=== PATIENT | female | born 1970 | race Caucasian/White ===

== ENCOUNTER 2017-02-09 13:11 | Outpatient (CLI) | payer BC ==
--- NOTE | 2017-02-09 15:48 | ULT ---
THYROID ULTRASOUND 02/09/17 HISTORY: Multiple thyroid nodules followup. Multiple longitudinal and transverse images of the thyroid gland is obtained using a multihertz linea r array transducer. Real time and color flow images are used to evaluate the thyroid. The right thyroid lobe measures 4.5 x 1.4 x 1.9 cm while the left measures 4.0 x 1.4 x 1.9 cm. Both thyroid lobes are extensively heterogeneous. No definite dominant nodule seen. The overall appea dee is stable. No significant interval growth of any individual lesion seen; however, the thyroid lobes are heterogeneous and individual focal areas are difficult to assess. IMPRESSION: Continued heterogeneous thyroid lobes. Findings compatible with multinodular goiter. No significant i nterval changes seen. No obvious dominant nodule seen. POS: [facility]
== END 2017-02-09 13:12 | disposition home or self-care (01) ==
LOC: SCSULT 13:11
PROVIDERS: ATTEND Family Medicine
DX: E04.1 Nontoxic single thyroid nodule (principal)
CPT/HCPCS: 76536

== ENCOUNTER 2017-03-02 10:39 | Outpatient (CLI) | payer BC ==
--- NOTE | 2017-03-09 14:27 | MMO ---
BILATERAL SCREENING MAMMOGRAM: Date: 03/02/17 HISTORY: 46-year-old female. Routine screening mammography. COMPARISON: 12/23/15. TECHNIQUE: CC and MLO views of both breasts are submitted for interpretation. This patient's mammogram was reviewed with the assistance of computer-aided detection. FINDINGS: The breasts are composed of heterogeneously dense fibroglandular tissue, which limits the sensitivity of mammography in the detection of underlying malignancy. Bilaterally, no suspicious dominant mass, architectural distortion, or suspicious calcifications. IMPRESSION: BIRADS 1: Negative RECOMMENDATION: Annual mammogram. POS: [facility]
== END 2017-03-02 10:40 | disposition home or self-care (01) ==
LOC: SCSMAMMO 10:39
PROVIDERS: ATTEND Family Medicine
DX: Z12.31 Encounter for screening mammogram for malignant neoplasm of breast (principal)
CPT/HCPCS: 77067; G0202

== ENCOUNTER 2017-03-08 13:09 | Emergency (ER) | payer BC ==
--- NOTE | 2017-03-08 14:06 | RAD ---
TWO VIEWS OF THE CHEST: 03/08/2017 COMPARISON: 02/22/2017 HISTORY: Chest pain. FINDINGS: There is no pneumothorax or pleural fluid and no focal consolidation or alveolar edema. Heart and me diastinal contours are stable. There is mild mid-thoracic spine dextroscoliosis. No acute findings are seen. IMPRESSION: No acute findings. POS: [facility]
[2017-03-08 14:56] LABS: #Basophils 0.1 thou/uL (0.0-0.2); #Eosinphils 0.3 thou/uL (0.0-0.7); #Lymphocytes 2.8 thou/uL (1.20-3.40); #Monocytes 0.5 thou/uL (0.11-0.59); #Neutrophils 3.6 thou/uL (1.40-6.50); %Basophils 0.7 % (0.0-1.0); %Eosinophils 3.5 % (0.0-10.0); %Lymphocytes 38.1 % (21.0-51.0); %Monocytes 7.3 % (0.0-10.0); Hematocrit 41.2 % (36.0-47.0); Mean Platelet Volume 7.2 fL (7.4-10.4); Red Blood Cell (RBC) Count 4.39 mill/uL (4.20-5.40); White Blood Cell (WBC) Count 7.2 thou/uL (4.8-10.8)
[2017-03-08 15:03] LABS: PTT 28.8 SEC (22.9-36.1)
[2017-03-08 15:19] LABS: ALT (SGPT) 21 U/L (8-55); AST (SGOT) 18 U/L (5-34); Alkaline Phosphatase 70 U/L (40-150); Anion Gap 11 mmol/L (10-20); BUN (Urea Nitrogen) 12 mg/dL (7.0-18.7); Bilirubin, Total 0.5 mg/dL (0.2-1.2); CK (CPK) 63 U/L (29-168); Calc. Creatinine Clearance 0 mL/min (70-130); Carbon Dioxide 29 mmol/L (22-29); Chloride 104 mmol/L (98-107); Estimated GFR-MDRD 74; Globulin 2.9 g/dL (2.4-3.5); Lipase 18 U/L (8-78); Protein, Total 7.1 g/dL (6.0-8.3)
[2017-03-08 15:23] LABS: Troponin I Less than 0.010 ng/mL (< 0.028)
[2017-03-08 15:24] LABS: Digoxin Less than 0.15 ng/mL (0.8-2.0)
--- NOTE | 2017-04-07 14:38 | EKG ---
Test Reason : Blood Pressure : / mmHG Vent. Rate : 087 BPM Atrial Rate : 087 BPM P-R Int : 176 ms QRS Dur : 076 ms QT Int : 364 ms P-R-T Axes : 076 -09 076 degrees QTc Int : 438 ms Normal sinus rhythm Possible Left atrial enlargement Nonspecific ST and T wave abnormality Abnormal ECG Confirmed by GARLAND BLEVINS, LINDA ([id number]), material expeditor FATOUMATA BABCOCK ([id number] on 04/07/2017 2:38:12 PM Referred By: Confirmed By:LINDA HAQUE MD
== END 2017-03-08 16:45 | disposition home or self-care (01) ==
LOC: ERS 13:09
DX: R07.89 Other chest pain (principal); J45.909 Unspecified asthma, uncomplicated; E03.9 Hypothyroidism, unspecified; F41.9 Anxiety disorder, unspecified; Z79.899 Other long term (current) drug therapy
CPT/HCPCS: 36415; 71020; 80053; 80162; 82550; 82553; 83690; 84484; 85025; 85610; 85730; 93005; 94760

== ENCOUNTER 2017-03-10 01:45 | Emergency (ER) | payer BC ==
[2017-03-10 02:15] LABS: #Basophils 0.1 thou/uL (0.0-0.2); #Eosinphils 0.3 thou/uL (0.0-0.7); #Lymphocytes 3.1 thou/uL (1.20-3.40); #Monocytes 0.6 thou/uL (0.11-0.59); #Neutrophils 3.5 thou/uL (1.40-6.50); %Basophils 1.4 % (0.0-1.0); %Eosinophils 4.2 % (0.0-10.0); %Lymphocytes 41.1 % (21.0-51.0); %Monocytes 8.3 % (0.0-10.0); Hematocrit 46.4 % (36.0-47.0); Mean Platelet Volume 6.4 fL (7.4-10.4); White Blood Cell (WBC) Count 7.7 thou/uL (4.8-10.8)
[2017-03-10] MEDS ORDERED: Nitroglycerin 2% Ointment 1 INCH/1 GM Packet ONE (02:23)
[2017-03-10] MEDS ORDERED: Clopidogrel Bisulfate 75 MG TAB ONE (02:26)
[2017-03-10 02:30] LABS: ALT (SGPT) 24 U/L (8-55); AST (SGOT) 19 U/L (5-34); Alkaline Phosphatase 73 U/L (40-150); Anion Gap 13 mmol/L (10-20); BUN (Urea Nitrogen) 13 mg/dL (7.0-18.7); Bilirubin, Total 0.4 mg/dL (0.2-1.2); Calc. Creatinine Clearance 0 mL/min (70-130); Calcium 9.3 mg/dL (7.8-10.44); Carbon Dioxide 28 mmol/L (22-29); Chloride 103 mmol/L (98-107); Estimated GFR-MDRD 65; Globulin 2.9 g/dL (2.4-3.5); Lipase 20 U/L (8-78); Protein, Total 7.3 g/dL (6.0-8.3)
[2017-03-10 02:32] LABS: Troponin I Less than 0.010 ng/mL (< 0.028)
[2017-03-10 05:22] LABS: Troponin I 0.015 ng/mL (< 0.028)
--- NOTE | 2017-03-10 08:01 | RAD ---
CHEST 2 VIEWS: HISTORY: Chest pain. COMPARISON: Chest radiograph 12/31/16. FINDINGS: Lungs are slightly hyperinflated. Mild reversed S-shaped scoliosis. No focal airspace infiltrate. Cardiac silhouette and mediastinal contours within normal limits. IMPRESSION: No significant change to radiographic comparison chest. Mild obstructive pulmonary disease. POS: [facility]
== END 2017-03-10 05:38 | disposition home or self-care (01) ==
LOC: SCSER 01:45
DX: R07.9 Chest pain, unspecified (principal); J45.909 Unspecified asthma, uncomplicated; E03.9 Hypothyroidism, unspecified; F41.9 Anxiety disorder, unspecified; Z79.899 Other long term (current) drug therapy
CPT/HCPCS: 71020; 80053; 82553; 83690; 84484; 85025; 93005

== ENCOUNTER 2018-02-18 10:59 | Outpatient (CLI) | payer BC ==
--- NOTE | 2018-02-18 13:42 | ULT ---
THYROID ULTRASOUND: HISTORY: Followup of thyroid nodules. COMPARISON: 02/09/2017 exam. FINDINGS: Real-time imaging of the right and left lobes of the gland were performed. The right lobe measures 1 .5 x 1.9 x 4.2 cm and the left lobe 1.5 x 2 x 4.1 cm. Once again, the gland is diffusely heterogeneo us. It is difficult to define discrete nodules. Probably the best visualized area of a solitary nod ule is in the left lobe where there is a 7 x 11 mm nodular density which is felt to be fairly similar in appearance to what was seen on the prior examination. IMPRESSION: Diffusely heterogeneous gland, stable. POS: [facility]
== END 2018-02-18 11:00 | disposition home or self-care (01) ==
LOC: SCSULT 10:59
PROVIDERS: ATTEND Otolaryngology Plastic Surgery within the Head & Neck
DX: E04.1 Nontoxic single thyroid nodule (principal)
CPT/HCPCS: 76536

== ENCOUNTER 2018-05-02 08:55 | Outpatient (CLI) | payer BC ==
--- NOTE | 2018-05-02 12:19 | MMO ---
BILATERAL SCREENING MAMMOGRAM: Date: 05/02/18 HISTORY: 47-year-old female. Routine screening mammography. COMPARISON: 03/02/17, 12/23/15. TECHNIQUE: CC and MLO views of both breasts are submitted for interpretation. This patient's mammogram was reviewed with the assistance of computer-aided detection. FINDINGS: The breasts are composed of heterogeneously dense fibroglandular tissue, which limits the sensitivity of mammography in the detection of underlying malignancy. Bilaterally, no suspicious dominant mass, architectural distortion, or suspicious calcifications. IMPRESSION: BIRADS 1: Negative RECOMMENDATION: Annual mammogram. POS: [facility]
== END 2018-05-02 08:56 | disposition home or self-care (01) ==
LOC: SCSMAMMO 08:55
PROVIDERS: ATTEND Obstetrics & Gynecology
DX: Z12.31 Encounter for screening mammogram for malignant neoplasm of breast (principal)
CPT/HCPCS: 77067

== ENCOUNTER 2018-12-08 13:04 | Outpatient (CLI) | payer BC ==
--- NOTE | 2018-12-08 13:37 | RAD ---
EXAM: Two views chest PROVIDED CLINICAL HISTORY: Dyspnea COMPARISON: 03/10/2017 FINDINGS: Cardiac silhouette and pulmonary vasculature are within normal limits. The lungs remain mildly hyper inflated. Linear densities are seen at the left lung base probably due to mild atelectasis. Lungs otherwise appear clear. Right convex scoliosis thoracic spine is again seen. Chest is stable compared to prior study. IMPRESSION: No acute cardiopulmonary process.
== END 2018-12-08 13:05 | disposition home or self-care (01) ==
LOC: RAD 13:04
PROVIDERS: ATTEND Internal Medicine Critical Care Medicine
DX: R06.00 Dyspnea, unspecified (principal)
CPT/HCPCS: 71046

== ENCOUNTER 2019-05-10 08:07 | Outpatient (CLI) | payer BC ==
--- NOTE | 2019-05-10 09:44 | CT ---
CT OF PELVIS PERFORMED WITH CONTRAST ENHANCEMENT: HISTORY: Left lower quadrant pain and pressure for the past week. The patient states she did some heavy lifti ng a week ago and the pain has been there since that time. FINDINGS: Somewhat inhomogeneous enhancement to the uterus which raises the possibility that there may be a fib roid. Ultrasound would be suggested as clinically indicated. Uterus does not appear enlarged. Ther e is no pelvic lymphadenopathy or mass. Visualized portion of the liver is unremarkable. No inguinal hernia is demonstrated. Review of osseous structures does not show any lytic or blastic bony change or evidence of any type o f fracture. There are arthritic changes of the lower lumbar spine noted with disk narrowing at L5-S1 . IMPRESSION: Somewhat inhomogeneous enhancement to the uterus, possibly related on the basis of fibroids. No evid ence of any hernia or other findings. POS: [facility]
== END 2019-05-10 08:08 | disposition home or self-care (01) ==
LOC: SCSCT 08:07
PROVIDERS: ATTEND Internal Medicine Gastroenterology
DX: N94.10 Unspecified dyspareunia (principal); R10.32 Left lower quadrant pain; N85.8 Other specified noninflammatory disorders of uterus
CPT/HCPCS: 72193

== ENCOUNTER 2024-12-20 09:32 | Outpatient (CLI) | payer BC | END 2024-12-20 09:33 | disposition home or self-care (01) | LOC: RAD 09:32 | PROVIDERS: ATTEND Internal Medicine Critical Care Medicine | DX: R06.00 Dyspnea, unspecified (principal) | CPT/HCPCS: 71046 ==